=== PATIENT | male | born 2000 | race Caucasian/White ===

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

== ENCOUNTER → 2022-06-01 | Outpatient (REF) | payer MEDICAID, OTHER | LOC: M LAB REF 12:13 | PROVIDERS: ATTEND Pediatrics | DX: J02.9 Acute pharyngitis, unspecified (principal) ==

== ENCOUNTER → 2022-07-23 | Outpatient (REF) | payer OTHER ==
[2022-07-23 14:21] LABS: ALBUMIN 4.4 G/DL (3.2-5.2); ALKALINE PHOSPHATASE 89 U/L (46-116); ALT/SGPT 19 U/L (7.0-40); AST/SGOT 16 U/L (<34); BILIRUBIN,TOTAL 0.3 MG/DL (0.3-1.2); BLOOD UREA NITROGEN 15 MG/DL (9-23); CARBON DIOXIDE LEVEL 24 MMOL/L (20-31); CHLORIDE LEVEL 106 MMOL/L (98-107); CHOLESTEROL LEVEL 150 MG/DL (<200); CHOLESTEROL RISK RATIO 4.93 (<5); CREATININE FOR GFR 1.03 MG/DL (0.70-1.30); GLUCOSE, FASTING 91 MG/DL (60-100); HDL CHOLESTEROL 30.4 MG/DL (>40); LDL CHOLESTEROL 99.2 MG/DL (<100); NON-HDL-C 119.6 MG/DL; SODIUM LEVEL 140 MMOL/L (136-145); TOTAL PROTEIN 7.3 G/DL (5.7-8.2); TRIGLYCERIDES LEVEL 102 MG/DL (<150)
[2022-07-23 14:24] LABS: THYROID STIMULATING HORMONE 3.866 uIU/ML (0.48-4.17)
== END ==
LOC: M LAB REF 13:13
PROVIDERS: ATTEND Family Medicine Addiction Medicine
DX: E78.2 Mixed hyperlipidemia (principal)

== ENCOUNTER → 2022-08-02 | Outpatient (REF) | payer OTHER ==
[2022-08-02 19:35] LABS: GC DNA AMPLIFICATION NEGATIVE (NEGATIVE)
== END ==
LOC: M LAB REF 17:21
PROVIDERS: ATTEND Family Medicine Addiction Medicine
DX: Z11.3 Encounter for screening for infections with a predominantly sexual mode of transmission (principal)

== ENCOUNTER → 2022-12-17 | Outpatient (REF) | payer OTHER ==
[2022-12-17 13:15] LABS: ALBUMIN 3.8 G/DL (3.2-5.2); ALKALINE PHOSPHATASE 79 U/L (46-116); ALT/SGPT < 9 U/L (7.0-40); AST/SGOT 16 U/L (<34); BILIRUBIN,TOTAL 0.2 MG/DL (0.3-1.2); BLOOD UREA NITROGEN 22 MG/DL (9-23); CALCIUM LEVEL 9.1 MG/DL (8.5-10.1); CARBON DIOXIDE LEVEL 27 MMOL/L (20-31); CHLORIDE LEVEL 106 MMOL/L (98-107); CHOLESTEROL LEVEL 142 MG/DL (<200); CHOLESTEROL RISK RATIO 4.31 (<5); CREATININE FOR GFR 1.13 MG/DL (0.70-1.30); GLUCOSE, FASTING 89 MG/DL (60-100); HDL CHOLESTEROL 32.9 MG/DL (>40); LDL CHOLESTEROL 94.1 MG/DL (<100); NON-HDL-C 109.1 MG/DL; POTASSIUM SERUM 4.8 MMOL/L (3.5-5.1); SODIUM LEVEL 140 MMOL/L (136-145); THYROID STIMULATING HORMONE 2.204 uIU/ML (0.48-4.17); TOTAL PROTEIN 6.7 G/DL (5.7-8.2); TRIGLYCERIDES LEVEL 75 MG/DL (<150)
[2022-12-17 13:43] LABS: HIV 1&2 SCREEN NEGATIVE (NEGATIVE)
[2022-12-17 13:51] LABS: HEPATITIS C VIRUS ABY INDEX 0.05 INDEX (<0.8)
== END ==
LOC: M LAB REF 12:19
PROVIDERS: ATTEND Family Medicine Addiction Medicine
DX: Z11.3 Encounter for screening for infections with a predominantly sexual mode of transmission (principal); E66.01 Morbid (severe) obesity due to excess calories

== ENCOUNTER → 2023-11-15 | Outpatient (REF) | payer OTHER ==
[~2023-11-15] MED LIST changes: +ONDA-282 PO; -ONDA4TAB6 PO
[2023-11-15 18:02] LABS: ALBUMIN 3.8 G/DL (3.2-5.2); ALKALINE PHOSPHATASE 76 U/L (46-116); ALT/SGPT 11 U/L (7.0-40); AST/SGOT 13 U/L (<34); BILIRUBIN,TOTAL 0.3 MG/DL (0.3-1.2); BLOOD UREA NITROGEN 16 MG/DL (9-23); CALCIUM LEVEL 9.7 MG/DL (8.5-10.1); CARBON DIOXIDE LEVEL 27 MMOL/L (20-31); CHLORIDE LEVEL 110 MMOL/L (98-107); CHOLESTEROL LEVEL 128 MG/DL (<200); CREATININE FOR GFR 0.85 MG/DL (0.70-1.30); GLUCOSE, FASTING 82 MG/DL (60-100); POTASSIUM SERUM 4.5 MMOL/L (3.5-5.1); SODIUM LEVEL 142 MMOL/L (136-145); TOTAL PROTEIN 6.9 G/DL (5.7-8.2); TRIGLYCERIDES LEVEL 88 MG/DL (<150)
[2023-11-15 18:04] LABS: THYROID STIMULATING HORMONE 2.499 uIU/ML (0.48-4.17)
[2023-11-15 23:48] LABS: CHOLESTEROL RISK RATIO 3.45 (<5); HDL CHOLESTEROL 37.1 MG/DL (>40); LDL CHOLESTEROL 73.3 MG/DL (<100); NON-HDL-C 90.9 MG/DL
== END ==
LOC: M LAB REF 16:36
PROVIDERS: ATTEND Family Medicine Addiction Medicine
DX: I10 Essential (primary) hypertension (principal)

== ENCOUNTER 2024-09-16 09:22 | Inpatient (IN) | payer MEDICAID, OTHER ==
[~2024-09-16] VITALS: Ht 185.4 cm; Wt 140.9 kg
[2024-09-16 10:09] LABS: PLATELET COUNT, AUTOMATED 322 10^3/uL (150-450)
[2024-09-16 10:35] LABS: BARBITURATES URINE NEGATIVE (NEGATIVE); BENZODIAZEPINES URINE NEGATIVE (NEGATIVE); COCAINE METABOLITE URINE NEGATIVE (NEGATIVE); METHADONE URINE NEGATIVE (NEGATIVE); OPIATES URINE NEGATIVE (NEGATIVE); PHENCYCLIDINE URINE NEGATIVE (NEGATIVE)
[2024-09-16 10:37] LABS: ETHYL ALCOHOL (ETHANOL) < 0.003 % (0.000-0.010)
[2024-09-16 10:39] LABS: ALT/SGPT 16 U/L (7.0-40); AST/SGOT 35 U/L (<34); CALCIUM LEVEL 9.5 MG/DL (8.5-10.1); CARBON DIOXIDE LEVEL 22 MMOL/L (20-31); CHLORIDE LEVEL 107 MMOL/L (98-107); CREATININE FOR GFR 1.10 MG/DL (0.70-1.30); GLOMERULAR FILTRATION RATE > 90.0 (>60); POTASSIUM SERUM 3.6 MMOL/L (3.5-5.1); SALICYLATE LEVEL < 3.0 MG/DL (<30); SODIUM LEVEL 143 MMOL/L (136-145)
[2024-09-16 10:50] LABS: AMPHETAMINES LEVEL URINE POSITIVE (NEGATIVE); CANNABINOIDS URINE POSITIVE (NEGATIVE)
[2024-09-16] MEDS ORDERED: BUSP10TA PO (12:57)
[2024-09-16] MEDS ORDERED: BUPR150T12 PO (12:57)
[2024-09-16] MEDS ORDERED: HOME MED LIST COMPLETE! XX SCH (13:00)
[2024-09-16] MEDS ORDERED: MOM 30 ML SUSPENSION UDC PO PRN (14:25)
[2024-09-16] MEDS ORDERED: IBUPROFEN 400 MG TAB PO PRN (14:25)
[2024-09-16] MEDS ORDERED: MAALOX 30 ML SUSP *UDC PO PRN (14:25)
[2024-09-16] MEDS: buPROPion **XL** 150 MG TABLET PO SCH (15:08)
[2024-09-16 15:25] VITALS: BP 138/94; TEMP 97.5; O2SAT 96
[2024-09-16] MEDS: ACETAMINOPHEN 325 MG TAB PO PRN (17:27)
[2024-09-16] MEDS: traZODone 50 MG TAB PO PRN (20:40)
[2024-09-17 06:43] VITALS: BP 115/66; TEMP 97.3; O2SAT 99
[2024-09-17 15:35] VITALS: BP 132/67; TEMP 97.5; O2SAT 97
[2024-09-17 17:36] LABS: KETONE, URINE AUTO RFX NEGATIVE (NEGATIVE); LEUKOCYTE ESTERASE UR AUTO RFX NEGATIVE (NEGATIVE); MUCUS, URINE RFX SMALL (NEGATIVE); NITRITE, URINE AUTO RFX NEGATIVE (NEGATIVE); RBC, URINE AUTO RFX 1 /HPF (0-3); SQUAM EPITHELIAL CELL UR AURFX 0 /HPF (0-6); WBC, URINE AUTO RFX 1 /HPF (0-3)
[2024-09-17 18:24] LABS: HIV 1&2 SCREEN NEGATIVE (NEGATIVE)
[2024-09-17 18:33] LABS: HEPATITIS C VIRUS ABY INDEX < 0.02 INDEX (<0.8)
[2024-09-17 18:57] LABS: GC DNA AMPLIFICATION NEGATIVE (NEGATIVE)
[2024-09-17] MEDS: DOXYCYCLINE HYCLATE 100 MG TABLET PO SCH (20:58)
[2024-09-17] MEDS: POLYSPORIN TOPICAL OINTMENT 15GM TOP SCH (21:00)
[2024-09-18 06:55] VITALS: BP 108/63; TEMP 97; O2SAT 98
[2024-09-18] MEDS ORDERED: DOXY100T PO (08:40)
[2024-09-18] MEDS ORDERED: BUSP10TA PO (08:40)
[2024-09-18] MEDS ORDERED: TRAZ-252 PO (08:40)
[2024-09-18] MEDS ORDERED: BACI28.3 TOP (08:40)
[2024-09-18] MEDS ORDERED: BUPR150T12 PO (08:40)
== END 2024-09-18 11:51 | disposition home or self-care (01) | DRG 753 ==
LOC: M ED 09:22 → EDBD 09:22 → M ED INP 14:24 → M PSY 15:38
PROVIDERS: ADMIT General Practice; ATTEND Psychiatry & Neurology Psychiatry
DX: F39 Unspecified mood [affective] disorder (principal); F15.10 Other stimulant abuse, uncomplicated; F12.10 Cannabis abuse, uncomplicated; R30.0 Dysuria; F17.210 Nicotine dependence, cigarettes, uncomplicated; S61.011A Laceration without foreign body of right thumb without damage to nail, initial encounter; Y92.9 Unspecified place or not applicable; Z79.899 Other long term (current) drug therapy; Y93.89 Activity, other specified; Y99.8 Other external cause status; Y04.0XXA Assault by unarmed brawl or fight, initial encounter; Z63.0 Problems in relationship with spouse or partner; Z62.810 Personal history of physical and sexual abuse in childhood; Z65.3 Problems related to other legal circumstances; Z81.8 Family history of other mental and behavioral disorders